=== PATIENT | male | born 1940 | race African-American/Black ===

== ENCOUNTER 2017-12-11 13:47 | Emergency (ER) | payer MEDICARE, BC ==
[~2017-12-11] VITALS: Ht 193 cm; Wt 99.8 kg
[~2017-12-11 13:47] MED LIST: AMLODIPINE BESY10 MG ORAL; ASPIRIN EC81 MG ORAL; DIOVAN HCT 1601 EACH ORAL; FISH OIL OMEGA1 EAC1 PO; IBUPROFEN600 MG ORAL; LIPITOR20 MG ORAL; LORAZEPAM1 MG ORAL; NEURONTIN100 MG ORAL; NORCO 5-325 TA1 EACH ORAL; VITAMIN D1000 UNI1 ORAL; [UNRECOGNIZED DRUG - OTHER]
[2017-12-11 14:26] VITALS: BP 141/83
[2017-12-11] MEDS ORDERED: Oxymetazoline 0.05% Na Spray 30ml NASAL ONE (14:30)
[2017-12-11 15:05] VITALS: BP 141/83
--- NOTE | 2017-12-11 15:23 | Emergency Room Report ---
History of Present Illness General Chief Complaint: Nosebleed Source: Patient Present Illness HPI 77-year-old male presents ED for evaluation. Patient states nosebleed started earlier today. History of chronic nosebleeds. Has had them for many years. Patient is followed by an ENT doctor at [facility]. Patient states that he has tissues in his nose to control the bleeding right now. States he swallowed some blood earlier. Does not take any blood thinners. Denies any pain. Denies trauma. No other aggravating relieving factors. Denies any other associated symptoms Allergies: Coded Allergies: PENICILLINS (Verified Allergy, 06/20/13) Patient History Past Medical History: psych hx Past Surgical History: none Pertinent Family History: none Social History: Denies: smoking, alcohol use, drug use Immunizations: UTD Reviewed Nursing Documentation: PMH: Agreed; PSxH: Agreed Nursing Documentation-PMH Past Medical History: No History, Except For Hx Hypertension: Yes History Of Psychiatric Problem: Yes - Anxiety Review of Systems All Other Systems: negative except mentioned in HPI Physical Exam Vital Signs Date Time Temp Pulse Resp B/P (MAP) Pulse Ox O2 Delivery O2 Flow Rate FiO2 12/11/17 13:59 98.0 85 20 145/85 94 Room Air 98.1 Sp02 EP Interpretation: reviewed, normal General Appearance: no apparent distress, alert, GCS 15, non-toxic Head: normocephalic, atraumatic Eyes: bilateral eye normal inspection, bilateral eye PERRL ENT: hearing grossly normal, normal pharynx, no angioedema, normal voice, other - nares with no active bleeding bilaterally Neck: full range of motion, supple/symm/no masses Respiratory: chest non-tender, lungs clear, normal breath sounds, speaking full sentences Cardiovascular #1: regular rate, rhythm, no edema Cardiovascular #2: 2+ carotid (R), 2+ carotid (L), 2+ radial (R), 2+ radial (L) , 2+ dorsalis pedis (R), 2+ dorsalis pedis (L) Gastrointestinal: normal bowel sounds, non tender, soft, non-distended, no guarding, no rebound Rectal: deferred Genitourinary: normal inspection, no CVA tenderness Musculoskeletal: back normal, gait/station normal, normal range of motion, non- tender Neurologic: alert, oriented x3, responsive, motor strength/tone normal, sensory intact, speech normal Psychiatric: judgement/insight normal, memory normal, mood/affect normal, no suicidal/homicidal ideation Reflexes: 3+ bicep (R), 3+ bicep (L), 3+ tricep (R), 3+ tricep (L), 3+ knee (R) , 3+ knee (L) Skin: normal color, no rash, warm/dry, well hydrated Lymphatic: no adenopathy Medical Decision Making Diagnostic Impression: Primary Impression: Epistaxis ER Course 77-year-old male presents to ED with epistaxis from right nostril. No trauma Differential-anterior epistaxis, posterior epistaxis, coagulopathy Patient placed on stretcher. After initial history, physical exam reveals elderly male in no acute distress. On exam there is no active bleeding from the right nostril. Left nostril unremarkable. Discussed findings with patient. I do not believe invasive measures such as TXA or Rhino Rocket indicated at this time Afrin spray applied to nostril. Patient observed for some time in ED with no recurrence of bleeding. Patient is comfortable with discharge at this time. States he will follow-up with his ENT this week Diagnoses- epistaxis Stable and discharged to home. Followup with ENT. Return to ED if symptoms recur or worsen Last Vital Signs Date Time Temp Pulse Resp B/P (MAP) Pulse Ox O2 Delivery O2 Flow Rate FiO2 12/11/17 15:05 98.1 20 141/83 96 Room Air 98.1 12/11/17 14:26 87 Status: improved Disposition: HOME, SELF-CARE Condition: Stable Referrals: NON PHYSICIAN (PCP) Patient Instructions: Nosebleed, [id number] Lukasz Garzon MD Dec 11, 2017 15:23
== END 2017-12-11 15:06 | disposition home or self-care (01) ==
LOC: EMR 14:30
DX: R04.0 Epistaxis (principal); I10 Essential (primary) hypertension; Z88.0 Allergy status to penicillin
CPT/HCPCS: 99283